=== PATIENT | female | born 1995 | race Caucasian/White ===

== ENCOUNTER 2017-09-01 14:15 | Emergency (ER) | payer OTHER ==
[2017-09-01 15:55] VITALS: BP 115/73
--- NOTE | 2017-09-01 16:21 | UC ---
Skin Complaint HPI - HPI Summary HPI Summary: rash on left forearm, began as one raised itchy area this am now has a small cluster of red itchy bumps - History of Current Complaint Chief Complaint: UCSkin Time Seen by Provider: 09/01/17 16:15 Stated Complaint: SKIN COMPLAINT Hx Obtained From: Patient Hx Last Menstrual Period: 08/05/17 ?: No Onset/Duration: Sudden Onset, Lasting Days - 1 Timing: Constant Onset Severity: Mild Current Severity: Mild Location: Discrete Character: Redness Aggravating Factor(s): Nothing Alleviating Factor(s): Nothing Associated Signs & Symptoms: Positive: Negative Related History: Possible Reaction to: Insect - Allergy/Home Medications Allergies/Adverse Reactions: Allergies Allergy/AdvReac Type Severity Reaction Status Date / Time Latex Allergy Swelling Verified 09/01/17 15:55 Review of Systems Constitutional: Negative Skin: Rash - quarter size patch on left forearm Eyes: Negative ENT: Negative Respiratory: Negative Cardiovascular: Negative Gastrointestinal: Negative Genitourinary: Negative Motor: Negative Neurovascular: Negative Musculoskeletal: Negative Neurological: Negative Psychological: Negative Is Patient Immunocompromised?: No All Other Systems Reviewed And Are Negative: Yes PMH/Surg Hx/FS Hx/Imm Hx Previously Healthy: Yes - Surgical History Surgical History: None - Family History Known Family History: Positive: None - Social History Occupation: Employed Full-time Lives: With Family Alcohol Use: None Substance Use Type: None Smoking Status (MU): Never Smoked Tobacco - Immunization History Vaccination Up to Date: Yes Physical Exam Triage Information Reviewed: Yes Appearance: Well-Appearing, No Pain Distress, Well-Nourished Vital Signs: Initial Vital Signs Temp 98.3 F 09/01/17 15:48 Pulse 80 09/01/17 15:48 Resp 16 09/01/17 15:48 BP 115/73 09/01/17 15:48 Pulse Ox 98 09/01/17 15:48 Vital Signs Reviewed: Yes Eye Exam: Normal Eyes: Positive: Conjunctiva Clear ENT Exam: Normal ENT: Positive: Normal ENT inspection, Hearing grossly normal. Negative: Nasal drainage, Muffled voice, Hoarse voice, Dental tenderness, Sinus tenderness Dental Exam: Normal Neck exam: Normal Neck: Positive: Supple, Nontender Respiratory Exam: Normal Respiratory: Positive: No respiratory distress, No accessory muscle use Cardiovascular Exam: Normal Cardiovascular: Positive: RRR, Pulses Normal, Brisk Capillary Refill Musculoskeletal Exam: Normal Musculoskeletal: Positive: Strength Intact, ROM Intact, No Edema Neurological Exam: Normal Neurological: Positive: Alert, Muscle Tone Normal Psychological Exam: Normal Skin Exam: Normal Course/Dx - Course Course Of Treatment: benadryl, triamcinole, rest increase fluids follow with pcp - Diagnoses Provider Diagnoses: Local reaction, left forearm to insect venom Discharge - Discharge Plan Condition: Stable Disposition: HOME Prescriptions: Triamcinolone 0.1% CREAM (NF) [Kenalog 0.1% Cream (NF)] 1 applic TOPICAL BID # 30 gm Patient Education Materials: Diphenhydramine (By mouth), Insect Bite or Sting ( ED), Cold Compress or Soak (ED) Referrals: Joanna Diaz MD [Primary Care Provider] - If Needed
== END 2017-09-01 16:42 | disposition home or self-care (01) ==
LOC: UCCORT 14:15
DX: T63.481A Toxic effect of venom of other arthropod, accidental (unintentional), initial encounter (principal); L25.8 Unspecified contact dermatitis due to other agents; Z91.040 Latex allergy status
CPT/HCPCS: 99212; G0463

== ENCOUNTER 2017-09-28 10:30 | Emergency (ER) | payer OTHER ==
[2017-09-28 11:40] VITALS: BP 116/66
--- NOTE | 2017-09-28 12:03 | UC ---
Respiratory Complaint HPI - HPI Summary HPI Summary: Cough and congestion for about 3-4 days. Her nephews have the flu. She does not live with any young or elderly relatives. She has no chronic disease or asthma. She is feeling slightly better today. - History of Current Complaint Chief Complaint: UCGeneralIllness Stated Complaint: FLU LIKE SYMP Time Seen by Provider: 09/28/17 11:52 Hx Obtained From: Patient Hx Last Menstrual Period: 08/05/17 Onset/Duration: Gradual Onset, Lasting Days Severity Initially: Severe Severity Currently: Moderate Pain Intensity: 0 Character: Cough: Nonproductive Aggravating Factors: Deep Breaths, Recumbent Position Alleviating Factors: Nothing Associated Signs And Symptoms: Positive: URI, Nasal Congestion. Negative: Calf Pain, Calf Swelling - Allergies/Home Medications Allergies/Adverse Reactions: Allergies Allergy/AdvReac Type Severity Reaction Status Date / Time Latex Allergy Swelling Verified 09/28/17 11:33 PMH/Surg Hx/FS Hx/Imm Hx Previously Healthy: Yes - Surgical History Surgical History: None - Family History Known Family History: Positive: None - Social History Lives: With Family Alcohol Use: None Substance Use Type: None Smoking Status (MU): Never Smoked Tobacco - Immunization History Most Recent Tetanus Shot: UTD Vaccination Up to Date: Yes Review of Systems Constitutional: Fever Respiratory: Cough All Other Systems Reviewed And Are Negative: Yes Physical Exam Triage Information Reviewed: Yes Appearance: Well-Appearing, No Pain Distress, Well-Nourished Vital Signs: Initial Vital Signs Temp 98.8 F 09/28/17 11:34 Pulse 76 09/28/17 11:34 Resp 16 09/28/17 11:34 BP 116/66 09/28/17 11:34 Pulse Ox 100 09/28/17 11:34 Vital Signs Reviewed: Yes Eye Exam: Normal Eyes: Positive: Conjunctiva Clear ENT: Positive: Hearing grossly normal, Pharynx normal, Nasal congestion, TMs normal, Uvula midline. Negative: Pharyngeal erythema, TM bulging, TM dull, TM red, Tonsillar swelling, Tonsillar exudate, Trismus, Sinus tenderness Neck: Positive: Supple, Nontender, No Lymphadenopathy Respiratory: Positive: Lungs clear, Normal breath sounds, No respiratory distress, No accessory muscle use. Negative: Respiratory distress, Decreased breath sounds, Accessory muscle use, Crackles, Rhonchi, Stridor, Wheezing Cardiovascular: Positive: No Murmur, Pulses Normal, Brisk Capillary Refill Abdomen Description: Positive: No Organomegaly, Soft. Negative: Distended, Guarding Musculoskeletal: Positive: ROM Intact, No Edema Neurological: Positive: Alert, Muscle Tone Normal. Negative: Fatigued Psychological: Positive: Age Appropriate Behavior Skin: Negative: rashes UC Diagnostic Evaluation - Laboratory O2 Sat by Pulse Oximetry: 100 Respiratory Course/Dx - Differential Dx/Diagnosis Provider Diagnoses: viral illnes. Discharge - Discharge Plan Condition: Good Disposition: HOME Patient Education Materials: Upper Respiratory Infection (ED) Referrals: Joanna Diaz MD [Primary Care Provider] - Additional Instructions: Mucinex DM and tylenol.
== END 2017-09-28 12:34 | disposition home or self-care (01) ==
LOC: UCCORT 10:30
DX: B34.9 Viral infection, unspecified (principal); Z91.040 Latex allergy status
CPT/HCPCS: 87502; 99211; G0463

== ENCOUNTER 2018-10-07 18:44 | Emergency (ER) | payer OTHER ==
[2018-10-07 19:07] VITALS: BP 141/68
--- NOTE | 2018-10-07 19:16 | UC ---
Nausea/Vomiting/Diarrhea HPI - HPI Summary HPI Summary: 1 wk of lower abd cramping and some pain. Had a couple of episodes of vomiting. she thought she was . has hx of pcos. denies blood in vomit ; blood ih stool; diarrhea. - History of Current Complaint Chief Complaint: UCGeneralIllness Stated Complaint: STOMACH ACHE,VOMITING,NAUSEA X 2 DAYS Time Seen by Provider: 10/07/18 19:09 Hx Obtained From: Patient Hx Last Menstrual Period: 08/02/18 Pain Intensity: 8 Pain Scale Used: 0-10 Numeric Aggravating Factor(s): Nothing Alleviating Factor(s): Vomiting - Allergies/Home Medications Allergies/Adverse Reactions: Allergies Allergy/AdvReac Type Severity Reaction Status Date / Time MS Latex Allergy Swelling Verified 10/07/18 19:07 Home Medications: Home Medications NK [No Home Medications Reported] 10/07/18 [History Confirmed 10/07/18] PMH/Surg Hx/FS Hx/Imm Hx - Additional Past Medical History Additional PMH: pcos Previously Healthy: Yes - Surgical History Surgical History: None - Family History Known Family History: Positive: None - Social History Alcohol Use: Occasionally Substance Use Type: None Smoking Status (MU): Never Smoked Tobacco - Immunization History Most Recent Tetanus Shot: UTD Vaccination Up to Date: Yes Review of Systems All Other Systems Reviewed And Are Negative: Yes Constitutional: Positive: Negative Skin: Negative: Rash ENT: Negative: Sore Throat Respiratory: Negative: Cough Gastrointestinal: Positive: Abdominal Pain, Vomiting. Negative: Diarrhea, Nausea, Other - denies reflux food intolerance. Genitourinary: Negative: Vaginal/Penile Discharge Physical Exam Triage Information Reviewed: Yes Appearance: Well-Appearing Vital Signs: Initial Vital Signs Temp 97.4 F 10/07/18 19:03 Pulse 76 10/07/18 19:03 Resp 16 10/07/18 19:03 BP 141/68 10/07/18 19:03 Pulse Ox 99 10/07/18 19:03 Vital Signs Reviewed: Yes ENT: Positive: Pharynx normal Neck: Positive: Supple, Nontender, No Lymphadenopathy Respiratory Exam: Normal Cardiovascular Exam: Normal Abdomen Description: Positive: Soft, Other: - mild discomfort at lower pelvic area radiating to L lower abd.. Negative: CVA Tenderness (R), CVA Tenderness (L ) Bowel Sounds: Positive: Present Neurological: Positive: Alert Skin: Negative: Rashes Diagnostics - Radiology No standard instances Radiology Interpretation Completed By: ED Physician Summary of Radiographic Findings: Stool and gas pattern. NO free air noted. Naus/Vom/Diarrhea Course/Dx - Course Course Of Treatment: 1 wk of lower abd cramping and a few episodes of vomiting. Urine hcg neg today sending urine for chlam/won. Vague symptoms and could be virus. kub did not show anything significant : some stool/gas pattern. Vitals good. gave pt. instructions of when to return or go to ED. - Differential Dx/Diagnosis Differential Diagnoses - Female: Bowel Obstruction, Constipation, Gastritis Provider Diagnosis: Vomiting Condition At Discharge: Good Discharge - Sign-Out/Discharge Documenting (check all that apply): Patient Departure All imaging exams completed and their final reports reviewed: No - Discharge Plan Condition: Good Disposition: HOME Patient Education Materials: Acute Abdominal Pain (ED) Referrals: Azucena Shepard NP [Primary Care Provider] - Additional Instructions: Pleaes go to ED for worsening symptoms or development of fever blood in stool worsening symptoms. - Billing Disposition and Condition Condition: GOOD Disposition: Home
--- NOTE | 2018-10-08 14:26 | UC ---
- Progress Note Progress Note: Final read reviewed and neg. Course/Dx - Diagnoses Provider Diagnoses: Vomiting Discharge - Sign-Out/Discharge Documenting (check all that apply): Patient Departure All imaging exams completed and their final reports reviewed: Yes - Discharge Plan Condition: Good Disposition: HOME Patient Education Materials: Acute Abdominal Pain (ED) Referrals: Azucena Shepard NP [Primary Care Provider] - Additional Instructions: Pleaes go to ED for worsening symptoms or development of fever blood in stool worsening symptoms. - Billing Disposition and Condition Condition: GOOD Disposition: Home
[2018-10-10 13:55] LABS: Neisseria gonorrhoeae (GC) RNA Negative (Negative)
== END 2018-10-07 20:13 | disposition home or self-care (01) ==
LOC: UCCORT 18:44
DX: R11.2 Nausea with vomiting, unspecified (principal); R10.30 Lower abdominal pain, unspecified; Z91.040 Latex allergy status; R29.898 Other symptoms and signs involving the musculoskeletal system
CPT/HCPCS: 74018; 84702; 87491; 87591; 99211; G0463